=== PATIENT | male | born 1990 | race Caucasian/White ===

== ENCOUNTER 2018-11-18 01:46 | Emergency (ER) | payer OTHER, SELFPAY ==
[2018-11-18] MEDS ORDERED: HYDROCODONE/APAP 5/325 MG TAB ONE (02:42)
[2018-11-18] MEDS ORDERED: LIDOCAINE 1% MPF 30 ML VIAL ONE (02:43)
[2018-11-18] MEDS ORDERED: VANCOMYCIN 1 GM/250 ML BAG ONE (03:22)
[2018-11-18] MEDS ORDERED: NA CHLORIDE 0.9% 1,000 ML ONE (03:22)
[2018-11-18 03:41] LABS: Absolute Monocytes 0.6 K/uL (0.1-1.3); Absolute Neutrophil 3.8 K/uL (1.8-8.0); Basophils % 0.6 % (0-1.3); Hematocrit 44.3 % (39.6-49.0); Lymphocytes % 29.3 % (15.3-44.8); MPV 8.6 fL (7.6-11.3); RBC Red Blood Cell Count 4.99 M/uL (4.33-5.43)
[2018-11-18 03:51] LABS: BUN Blood Urea Nitrogen 27 mg/dL (7-18); Bicarbonate 30 mmol/L (21-32); C-Reactive Protein < 2.90 mg/L (<3.00); Glucose Level 116 mg/dL (74-106); Potassium 3.9 mmol/L (3.5-5.1); Sodium Level 139 mmol/L (136-145)
--- NOTE | 2018-11-18 04:23 | ER ---
Nurse's Notes [facility] Name: Mike Jane Age: 28 yrs Sex: Male : 1990 Arrival Date: 11/18/2018 Time: 01:51 Bed 6 Private MD: Diagnosis: Cellulitis scrotum Presentation: 11/18 02:00 Presenting complaint: Patient states: insect bite (spider?/bug?)scrotal area last rr5 Friday begun. 02:00 Transition of care: patient was not received from another setting of care. Onset of rr5 symptoms was November 11, 2018. Risk Assessment: Do you want to hurt yourself or someone else? Patient reports no desire to harm self or others. Initial Sepsis Screen: Does the patient meet any 2 criteria? No. Patient's initial sepsis screen is negative. Does the patient have a suspected source of infection? No. Patient's initial sepsis screen is negative. Note patient stated he is having allergy to detergent. blister wound around the penile and scrotal area,reddened,open wound, with white fluid discharge at scrotum area. Care prior to arrival: None. 02:00 Method Of Arrival: Ambulatory rr5 02:00 Acuity: [place] 3 rr5 Triage Assessment: 03:30 Bite description: bite sustained to penile and scrotal area by bug/spider? patient not rr5 sure as stated, animal information: vaccination(s) is not applicable. 03:30 General: see nurses notes. rr5 Historical: - Allergies: 02:13 fabric detergent; rr5 - Home Meds: 02:13 alprazolam Oral [Active]; rr5 - PMHx: 02:13 None; rr5 - PSHx: 02:13 None; rr5 - Immunization history:: Adult Immunizations not up to date, Flu vaccine is up to date. - Social history:: Smoking status: Patient uses tobacco products, smokes one-half pack cigarettes per day, Patient/guardian denies using alcohol, street drugs. - Ebola Screening: : Patient negative for fever greater than or equal to 101.5 degrees Fahrenheit, and additional compatible Ebola Virus Disease symptoms Patient denies exposure to infectious person Patient denies travel to an Ebola-affected area in the 21 days before illness onset. Screenin:18 Abuse screen: Denies threats or abuse. Denies injuries from another. Nutritional rr5 screening: No deficits noted. Tuberculosis screening: No symptoms or risk factors identified. Fall Risk None identified. Total Flores Fall Scale indicates No Risk (0-24 pts). Assessment: 02:00 General: Appears in no apparent distress. uncomfortable, Behavior is calm, cooperative, rr5 appropriate for age. Pain: Complains of pain in penile and scrotal area Pain does not radiate. Pain currently is 10 out of 10 on a pain scale. Quality of pain is described as aching, Pain began gradually, Is continuous. 02:00 Neuro: Level of Consciousness is awake, alert, obeys commands, Oriented to person, rr5 place, time, situation. Cardiovascular: Capillary refill < 3 seconds Patient's skin is warm and dry. Respiratory: Airway is patent Respiratory effort is even, unlabored, Respiratory pattern is regular, symmetrical. GI: No signs and/or symptoms were reported involving the gastrointestinal system. : Blisters noted Lesions noted on penis on scrotum clear fluid discharge at scrotal area. EENT: No signs and/or symptoms were reported regarding the EENT system. Derm: Skin has lesions on penile and scrotal area has blisters on penile and scrotal area Skin is pink, warm \T\ dry. Musculoskeletal: No signs and/or symptoms reported regarding the musculoskeletal system. 03:00 Reassessment: Patient appears in no apparent distress at this time. No changes from rr5 previously documented assessment. 03:15 Reassessment: Patient appears in no apparent distress at this time. Patient and/or rocío5 family updated on plan of care and expected duration. Pain level reassessed. reexamined by ED provider with order to clean the site cancelled the I\T\D procedure. 04:16 Reassessment: Patient appears in no apparent distress at this time. Patient and/or rr5 family updated on plan of care and expected duration. Pain level reassessed. no complaints made. Patient states feeling better. Patient states symptoms have improved. 04:23 Reassessment: Patient appears in no apparent distress at this time. reexamined by dr. brown mensah instructed to make an appointment to urologist or he can go to [place] for reevaluation. 05:16 Reassessment: Patient appears in no apparent distress at this time. Patient and/or rr5 family updated on plan of care and expected duration. Pain level reassessed. asleep comfortably on bed. discharged instruction and prescription explained. awaiting for his host/hostess head to pick him up. explained we are not advising him to drive after the norco pill that he took. Patient states feeling better. Patient states symptoms have improved. Vital Signs: 02:00 BP 140 / 83; Pulse 107; Resp 18; Temp 97.9; Pulse Ox 100% ; Weight 74.84 kg; Height 5 rr5 ft. 11 in. (180.34 cm); Pain 10/10; 03:00 BP 129 / 88; Pulse 89; Resp 18; Pulse Ox 99% ; rr5 03:45 BP 128 / 81; Pulse 93; Resp 17; Pulse Ox 100% ; rr5 04:22 BP 121 / 79; Pulse 79; Resp 17; Pulse Ox 99% ; rr5 05:15 BP 121 / 82; Pulse 75; Resp 16; Pulse Ox 100% ; rr5 02:00 Body Mass Index 23.01 (74.84 kg, 180.34 cm) rr5 ED Course: 01:51 Patient arrived in ED. es 01:55 Piyush Moreira, RN is Primary Nurse. jb4 02:00 Arm band placed on right wrist. rr5 02:03 Augustine Mensah MD is Attending Physician. pkl 02:04 Nadir Rome, ANITHA is Primary Nurse. rr5 02:10 Triage completed. rr5 02:19 Patient has correct armband on for positive identification. Bed in low position. Call rr5 light in reach. Side rails up X 1. Pulse ox on. NIBP on. 03:30 Inserted saline lock: 20 gauge in right antecubital area, using aseptic technique. lt1 04:22 Romana Morgan MD is Referral Physician. pkl 05:25 No provider procedures requiring assistance completed. IV discontinued, intact, rr5 bleeding controlled, No redness/swelling at site. Pressure dressing applied. Administered Medications: 02:39 Drug: [place] 5 mg-325 mg 1 tabs Route: PO; rr5 05:15 Follow up: Response: No adverse reaction rr5 03:12 Not Given (Other Intervention Used; cancelled I\T\D procedure): Lidocaine (1 %) 5 ml 20 rr5 ml Infiltration once; for incision and drainage 03:35 Drug: NS 0.9% 1000 ml Route: IV; Rate: 1000 ml; Site: right antecubital; rr5 05:14 Follow up: Response: No adverse reaction; IV Status: Completed infusion; IV Intake: rr5 1000ml 03:36 Drug: vancoMYCIN 1 grams Route: IVPB; Infused Over: 2 hrs; Site: right antecubital; rr5 05:20 Follow up: Response: No adverse reaction; IV Status: Completed infusion; IV Intake: rr5 250ml Intake: 05:14 IV: 1000ml; Total: 1000ml. rr5 05:20 IV: 250ml; Total: 1250ml. rr5 Outcome: 04:23 Discharge ordered by . pkandrew 05:25 Discharged to home ambulatory, with friend. rr5 05:25 Condition: stable 05:25 Discharge instructions given to patient, Instructed on discharge instructions, follow up and referral plans. medication usage, Demonstrated understanding of instructions, follow-up care, medications, Prescriptions given X 3. 05:26 Patient left the ED. rr5 Signatures: Augustine Mensah MD MD pkMichelle Fernandez James RN RN jb4 Nadir Rome RN RN rr5 Verona Pelayo 1
--- NOTE | 2018-11-18 04:23 | EDPHYS ---
Physician Documentation [facility] Name: Mike Jane Age: 28 yrs Sex: Male : 1990 Arrival Date: 11/18/2018 Time: 01:51 Bed 6 Private MD: ED Physician Augustine Robert HPI: 11/18 03:04 This 28 yrs old Male presents to ER via Ambulatory with complaints of Insect pkl Bite. 03:04 The patient presents with scrotal pain, mid section, swelling. Onset: The pkl symptoms/episode began/occurred 5 day(s) ago. Historical: - Allergies: 02:13 fabric detergent; rr5 - Home Meds: 02:13 alprazolam Oral [Active]; rr5 - PMHx: 02:13 None; rr5 - PSHx: 02:13 None; rr5 - Immunization history:: Adult Immunizations not up to date, Flu vaccine is up to date. - Social history:: Smoking status: Patient uses tobacco products, smokes one-half pack cigarettes per day, Patient/guardian denies using alcohol, street drugs. - Ebola Screening: : Patient negative for fever greater than or equal to 101.5 degrees Fahrenheit, and additional compatible Ebola Virus Disease symptoms Patient denies exposure to infectious person Patient denies travel to an Ebola-affected area in the 21 days before illness onset. ROS: 03:04 Eyes: Negative for injury, pain, redness, and discharge, ENT: Negative for injury, pkl pain, and discharge, Neck: Negative for injury, pain, and swelling, Cardiovascular: Negative for chest pain, palpitations, and edema, Respiratory: Negative for shortness of breath, cough, wheezing, and pleuritic chest pain, Abdomen/GI: Negative for abdominal pain, nausea, vomiting, diarrhea, and constipation, Back: Negative for injury and pain. 03:04 : Positive for of the pain mid section of scrotum. Exam: 03:04 Head/Face: Normocephalic, atraumatic. Eyes: Pupils equal round and reactive to light, pkl extra-ocular motions intact. Lids and lashes normal. Conjunctiva and sclera are non-icteric and not injected. Cornea within normal limits. Periorbital areas with no swelling, redness, or edema. ENT: Nares patent. No nasal discharge, no septal abnormalities noted. Tympanic membranes are normal and external auditory canals are clear. Oropharynx with no redness, swelling, or masses, exudates, or evidence of obstruction, uvula midline. Mucous membranes moist. Neck: Trachea midline, no thyromegaly or masses palpated, and no cervical lymphadenopathy. Supple, full range of motion without nuchal rigidity, or vertebral point tenderness. No Meningismus. Chest/axilla: Normal chest wall appearance and motion. Nontender with no deformity. No lesions are appreciated. Cardiovascular: Regular rate and rhythm with a normal S1 and S2. No gallops, murmurs, or rubs. Normal PMI, no JVD. No pulse deficits. Respiratory: Lungs have equal breath sounds bilaterally, clear to auscultation and percussion. No rales, rhonchi or wheezes noted. No increased work of breathing, no retractions or nasal flaring. Abdomen/GI: Soft, non-tender, with normal bowel sounds. No distension or tympany. No guarding or rebound. No evidence of tenderness throughout. Back: No spinal tenderness. No costovertebral tenderness. Full range of motion. 03:04 : Tender, mild swelling mid section of scrotum. 03:04 Musculoskeletal/extremity: Exam is negative for acute changes. 03:04 Neuro: Orientation: is normal, Mentation: is normal, Cranial nerves: grossly normal, Motor: is normal. Vital Signs: 02:00 BP 140 / 83; Pulse 107; Resp 18; Temp 97.9; Pulse Ox 100% ; Weight 74.84 kg; Height 5 rr5 ft. 11 in. (180.34 cm); Pain 10/10; 03:00 BP 129 / 88; Pulse 89; Resp 18; Pulse Ox 99% ; rr5 03:45 BP 128 / 81; Pulse 93; Resp 17; Pulse Ox 100% ; rr5 04:22 BP 121 / 79; Pulse 79; Resp 17; Pulse Ox 99% ; rr5 05:15 BP 121 / 82; Pulse 75; Resp 16; Pulse Ox 100% ; rr5 02:00 Body Mass Index 23.01 (74.84 kg, 180.34 cm) rr5 MDM: 02:03 Patient medically screened. [facility] 04:22 Data reviewed: vital signs, nurses notes, lab test result(s). [facility] 11/18 03:03 Order name: CBC with Diff; Complete Time: 04:20 pkl 11/18 03:03 Order name: Chem 7; Complete Time: 03:52 pkl 11/18 03:03 Order name: Sed Rate; Complete Time: 04:20 pkl 11/18 03:03 Order name: CRP; Complete Time: 03:52 pkl Administered Medications: 02:39 Drug: [place] 5 mg-325 mg 1 tabs Route: PO; rr5 05:15 Follow up: Response: No adverse reaction rr5 03:12 Not Given (Other Intervention Used; cancelled I\T\D procedure): Lidocaine (1 %) 5 ml 20 rr5 ml Infiltration once; for incision and drainage 03:35 Drug: NS 0.9% 1000 ml Route: IV; Rate: 1000 ml; Site: right antecubital; rr5 05:14 Follow up: Response: No adverse reaction; IV Status: Completed infusion; IV Intake: rr5 1000ml 03:36 Drug: vancoMYCIN 1 grams Route: IVPB; Infused Over: 2 hrs; Site: right antecubital; rr5 05:20 Follow up: Response: No adverse reaction; IV Status: Completed infusion; IV Intake: rr5 250ml Disposition: 11/18/18 04:23 Discharged to Home. Impression: Cellulitis scrotum. - Condition is Stable. - Prescriptions for Ultram 50 mg Oral Tablet - take 1 tablet by ORAL route every 8 hours As needed; 20 tablet. Cipro 500 mg Oral Tablet - take 1 tablet by ORAL route every 12 hours for 7 days; 14 tablet. Bactrim DS 800- 160 mg Oral Tablet - take 1 tablet by ORAL route every 12 hours for 10 days; 20 tablet. - Medication Reconciliation Form, Thank You Letter, Antibiotic Education, Prescription Opioid Use form. - Work release form (11/18/18 05:29). rr5 - Follow up: Romana Morgan MD; When: 1 - 2 days; Reason: Re-evaluation by your physician. - Problem is new. - Symptoms are unchanged. Signatures: Dispatcher [employer] EDAugustine Swan MD MD pkNadir Posada RN RN rr5 Corrections: (The following items were deleted from the chart) 05:26 04:23 11/18/2018 04:23 Discharged to Home. Impression: Cellulitis scrotum. Condition is rr5 Stable. Forms are Medication Reconciliation Form, Thank You Letter, Antibiotic Education, Prescription Opioid Use. Follow up: Romana Morgan; When: 1 - 2 days; Reason: Re-evaluation by your physician. Problem is new. Symptoms are unchanged. pkl
[2018-11-18 05:34] VITALS: TEMP 97.9
[2018-11-18 05:38] VITALS: BP 121/82; O2SAT 100
== END 2018-11-18 05:26 | disposition home or self-care (01) ==
LOC: ER 01:46
DX: N49.2 Inflammatory disorders of scrotum (principal); F17.210 Nicotine dependence, cigarettes, uncomplicated
CPT/HCPCS: 36415; 80048; 85025; 85652; 86140; 96365; 96366; 99284; J3370; J7030